=== PATIENT | male | born 1970 | race Caucasian/White ===

== ENCOUNTER 2021-12-25 21:23 | Emergency (ER) | payer SELFPAY ==
[~2021-12-25] VITALS: Ht 182.9 cm; Wt 83.9 kg
--- NOTE | 2021-12-25 21:27 | NUR ---
BIBRA39. PALPITATION X YESTERDAY 1929. HR 147. HAD LEFT SIDE CP WHEN IT STARTED, NOW RESOLVED AFTER ADVIL. PLACED COMFORTABLY IN BED. VITALS CHECKED
--- NOTE | 2021-12-25 21:40 | NUR ---
20G IV LINE ESTABLISHED AT [facility]. BLOOD DRAWN AND SENT TO LAB.
--- NOTE | 2021-12-25 21:46 | NUR ---
CXR DONE AT BEDSIDE.
[2021-12-25 21:59] LABS: BASOPHILS % (AUTO) 0.2 % (0.0-2.0); HEMATOCRIT 38 % (39-51); LYMPHOCYTES # (AUTO) 1.2 K/uL (0.8-4.8); MEAN CORPUSCULAR HGB CONC 34 g/dl (31.0-36.0); MEAN CORPUSCULAR VOLUME 88 fL (80-96); MONOCYTES # (AUTO) 0.6 K/uL (0.1-1.30); MONOCYTES % (AUTO) 4.6 % (2.0-12.0); NEUTROPHILS # (AUTO) 11.8 K/uL (1.8-8.9); NEUTROPHILS % (AUTO) 86.2 % (43.0-81.0); PLATELET COUNT (AUTO) 167 K/uL (150-450); RED BLOOD CELL COUNT(AUTO) 4.37 MIL/uL (4.5-6.0); WHITE BLOOD COUNT (AUTO) 13.6 K/uL (4.3-11.0)
[2021-12-25] MEDS ORDERED: IV NS 0.9% 1,000 ML BAG IV ONE ×2 (22:00→23:00)
[2021-12-25] MEDS ORDERED: diphenhydrAMINE HCL 50 MG/ML VIAL IV ONE (23:00)
[2021-12-25] MEDS ORDERED: METOCLOPRAMIDE HCL 10 MG/2 ML VIAL IV ONE (23:00)
[2021-12-25] MEDS ORDERED: METOCLOPRAMIDE HCL 10 MG/2 ML VIAL ONE (23:00)
[2021-12-25] MEDS ORDERED: KETOROLAC TROMETHAMINE 15 MG/ML VIAL ONE (23:00)
[2021-12-25] MEDS ORDERED: KETOROLAC TROMETHAMINE INJ 30 MG/ML VIAL IV ONE (23:00)
[2021-12-25] MEDS ORDERED: diphenhydrAMINE HCL 50 MG/ML VIAL ONE (23:00)
[2021-12-25 23:19] LABS: CALCIUM, SERUM 8.7 mg/dL (8.5-10.1); CARBON DIOXIDE 21 mmol/L (21-32); CHLORIDE 102 mmol/L (98-107); CREATININE 1.5 mg/dL (0.6-1.3); GLUCOSE 189 mg/dL (74-106); SODIUM SERUM 135 mmol/L (136-145)
[2021-12-25 23:25] LABS: ALANINE AMINOTRANSFERASE 85 U/L (12-78); ALBUMIN 3.4 g/dL (3.4-5.0); ALKALINE PHOSPHATASE 96 U/L (46-116); ASPARTATE AMINOTRANSFERASE 49 U/L (15-37); BILIRUBIN,DIRECT 0.4 mg/dL (0.0-0.2); BILIRUBIN,TOTAL 1.4 mg/dL (0.2-1.0); TOTAL PROTEIN, SERUM 7.6 g/dL (6.4-8.2)
[2021-12-25 23:41] LABS: UREA NITROGEN, BLOOD 14 mg/dL (7-18)
[2021-12-26] MEDS ORDERED: KETO10TA2 PO (00:02)
--- NOTE | 2021-12-26 00:34 | NUR ---
IV removed. Catheter intact and site benign. Pressure and 4x4 applied to site. No bleeding noted.Patient discharged to home in stable condition. Written and verbal after care instructions given. Patient verbalizes understanding of instruction.
[2021-12-26 00:41] VITALS: BP 110/66
[2021-12-26] MEDS ORDERED: AMOX-427 PO (09:20)
== END 2021-12-26 00:43 | disposition home or self-care (01) ==
LOC: ER 21:34
DX: R51.9 Headache, unspecified (principal); R94.31 Abnormal electrocardiogram [ECG] [EKG]; Z60.2 Problems related to living alone
CPT/HCPCS: 36415; 71045; 80048; 80076; 84484; 85025; 93005; 96361; 96374; 96375; 99285; J1200; J1885; J2765; J7030 ×2

== ENCOUNTER 2021-12-26 05:10 | Emergency (ER) | payer SELFPAY ==
[~2021-12-26] VITALS: Ht 182.9 cm; Wt 83.9 kg
[~2021-12-26 05:10] MED LIST: KETO10TA2 PO
[2021-12-26] MEDS ORDERED: ACETAMINOPHEN 650 MG/20.3 ML UDC PO ONE (05:30)
[2021-12-26] MEDS ORDERED: ACETAMINOPHEN 325 MG TABLET ONE (05:30)
--- NOTE | 2021-12-26 05:42 | NUR ---
TO ER BED 7. BIBSELF C/O FEVER, COUGH/SORE THROAT, AND HEADACHE X 2 WEEKS. NOT RELEIVED BY OTC MEDS. PT WAS SEEN EARLIER TODAY FOR PALPITATIONS, FEVER WAS NOT PRESENT. PT CONNECTED TO MONITOR. AWAITING MD PORTILLO
[2021-12-26] MEDS ORDERED: IV NS 0.9% 1,000 ML BAG IV ONE (06:30)
[2021-12-26] MEDS ORDERED: ACETAMINOPHEN ES 500 MG TABLET PO ONE (06:30)
--- NOTE | 2021-12-26 06:42 | NUR ---
IV LINE ESTABLISHED, RAC 18G. BLOOD OBTAINED AND SENT TO LAB
--- NOTE | 2021-12-26 06:42 | NUR ---
COVID ANTIGEN SWAB COLLECTED AND SENT TO LAB
--- NOTE | 2021-12-26 07:13 | NUR ---
INFLUENZA SWAB DONE AND SENT TO LAB
[2021-12-26] MEDS ORDERED: IOHEXOL-300 100 ML VIAL IV ONE (07:36)
[2021-12-26] MEDS ORDERED: IV NS 0.9% 250 ML IV ONE (07:36)
--- NOTE | 2021-12-26 07:42 | NUR ---
WHEELED TO RADIOLOGY DEPT FOR CT SCAN OF NECK AND HEAD.
--- NOTE | 2021-12-26 07:42 | NUR ---
TO RADIOLOGY FOR CT
[2021-12-26 08:10] LABS: MONOTEST NEGATIVE (NEGATIVE)
[2021-12-26] MEDS ORDERED: AMOX-427 PO (09:20)
--- NOTE | 2021-12-26 09:40 | NUR ---
IV CANNULA REMOVED
--- NOTE | 2021-12-26 09:44 | NUR ---
Patient discharged to home in stable condition. Written and verbal after care instructions given. Patient verbalizes understanding of instruction.
[2021-12-26 09:45] VITALS: BP 97/53
== END 2021-12-26 09:46 | disposition home or self-care (01) ==
LOC: ER 05:13
DX: I88.9 Nonspecific lymphadenitis, unspecified (principal); Z20.822 Contact with and (suspected) exposure to COVID-19; R00.0 Tachycardia, unspecified
CPT/HCPCS: 36415; 70491; 71260; 86308; 87426; 87804; 96360; 99285; C9803; J7030; J7050; Q9967